=== PATIENT | female | born 1945 | race Caucasian/White ===

== ENCOUNTER 2020-10-28 09:23 | Day surgery (SDC) | payer MEDICARE ==
[2020-10-21 15:52] LABS: BASOPHILS % (AUTO) 0.7 % (0-1); EOSINOPHILS % (AUTO) 0.6 % (0-6); LYMPHOCYTES # (AUTO) 2.2 X10'3 (1.1-4.8); LYMPHOCYTES % (AUTO) 38.1 % (21-51); MEAN CORPUSCULAR HEMOGLOBIN 31.1 PG (27.0-31.0); MEAN CORPUSCULAR HGB CONC 33.6 g/dL (33.0-36.5); MEAN CORPUSCULAR VOLUME 92.6 FL (78-98); MEAN PLATELET VOLUME 7.6 FL (7.4-10.4); MONOCYTES # (AUTO) 0.5 X10'3 (0-0.9); MONOCYTES % (AUTO) 9.2 % (2-12); NEUTROPHILS # (AUTO) 2.9 X10'3 (1.8-7.7); NEUTROPHILS % (AUTO) 51.4 % (42-75); PRE OP HEMATOCRIT 41.3 % (35.0-45.0); PRE OP HEMOGLOBIN 13.9 g/dL (12.0-16.0); PRE OP PLATELET COUNT 194 X10'3 (140-440); RED BLOOD COUNT 4.46 X10'6 (4.20-5.60); RED CELL DISTRIBUTION WIDTH 13.5 % (11.5-14.5)
[2020-10-21 16:12] LABS: ALBUMIN 3.8 G/DL (3.4-5.0); ALKALINE PHOSPHATASE 58 IU/L (46-116); BLOOD UREA NITROGEN 18 MG/DL (7-18); BUN/CREATININE RATIO 16.7 (6.6-38.0); CALCIUM 9.7 MG/DL (8.5-10.1); CHLORIDE 105 MMOL/L (99-107); CREATININE 1.08 MG/DL (0.40-0.90); PRE OP ALT 25 U/L (30-65); PRE OP ANION GAP 6 (8-16); PRE OP AST 9 U/L (10-37); PRE OP BILIRUB, TOTAL 0.5 MG/DL (0.0-1.0); PRE OP POTASSIUM 3.8 MMOL/L (3.4-5.1); PRE OP SODIUM 143 MMOL/L (135-145); TOTAL CARBON DIOXIDE 32.5 MMOL/L (24-32); TOTAL PROTEIN 7.6 G/DL (6.4-8.2); eGFR 49 ML/MIN
[2020-10-21 16:13] LABS: PRE OP GLUCOSE 103 MG/DL (70-104)
[~2020-10-28] VITALS: Ht 162.6 cm; Wt 63.5 kg
[2020-10-28] VITALS (11 sets, daily range): BP systolic 107–122; BP diastolic 60–72
[~2020-10-28 09:23] MED LIST: BUPIVAcaine/PF 2.5 mg/ml (0.25%) 30ml vial ONE; ESTR1PAT95 TP; LIDOcaine 1% 30ml preserv. free vial ONE; PROG200C11 PO; ceFAZolin 2gm in dextrose, iso 50 ML IV ONE; famotidine 20mg tablet PO ONE; ringers solution, lacted 1,000 ML IV SCH
[2020-10-28] MEDS ORDERED: sevoflurane 250ml liquid IH ONE (12:03)
[2020-10-28] MEDS ORDERED: neostigmine methylsulfate 1 MG/ML 10ml vial ONE (12:03)
[2020-10-28] MEDS ORDERED: glycopyrrolate 0.2mg/ml inj ONE (12:03)
[2020-10-28] MEDS ORDERED: midazolam 2 mg/2 ml injection ONE (12:12)
[2020-10-28] MEDS ORDERED: fentaNYL/PF 50MCG/1 ML 2ML syringe ONE (12:12)
[2020-10-28] MEDS ORDERED: LIDOcaine 2% (20mg/ml) 5ml vial ONE (12:17)
[2020-10-28] MEDS ORDERED: propofol inj 20 ML IV ONE (12:17)
[2020-10-28] MEDS ORDERED: rocuronium 10mg/ml inj IV ONE (12:18)
[2020-10-28] MEDS ORDERED: ondansetron/PF 4mg/2ml inj ONE (12:19)
[2020-10-28] MEDS ORDERED: dexamethasone sod phosphate 4mg/ml inj. ONE (12:20)
[2020-10-28] MEDS ORDERED: ringers solution, lacted 1,000 ML IV SCH (12:40)
[2020-10-28] MEDS ORDERED: fentaNYL/PF 50MCG/1 ML 2ML syringe IV PRN ×2 (12:40)
[2020-10-28] MEDS ORDERED: hydrALAZINE 20mg/ml inj. IV PRN (12:40)
[2020-10-28] MEDS ORDERED: ondansetron/PF 4mg/2ml inj IV PRN (12:40)
[2020-10-28] MEDS ORDERED: labetalol 20mg/4ml (5mg/ml) syringe IV PRN (12:40)
[2020-10-28] MEDS ORDERED: morphine 4 MG/ML inj SYRINge IV PRN (12:40)
--- NOTE | 2020-10-28 13:37 | NUR ---
Received from OR via [facility], accompanied by Anesthesiologist AP and report given by Anesthesiolgist. NO CO PAIN, VSS, IV PATENT. 0 RESP DISTRESS. ABD BANDAIDS CDI.
[2020-10-28] MEDS ORDERED: oxyCODONE/APAP 5-325mg tablet PO PRN (13:45)
[2020-10-28] MEDS: morphine 2 MG/ML inj. syringe IV PRN ×2 (13:50→14:08)
[2020-10-28] MEDS ORDERED: acetaminophen 1,000mg/100ml IV 100 ML IV ONE (13:55)
--- NOTE | 2020-10-28 14:07 | NUR ---
STARTED TO GET PAINFUL. MED WITH MORPHINE 2 MG. PAIN IS IN ABD.
--- NOTE | 2020-10-28 14:25 | NUR ---
MED WITH TYLENOL IV FOR PAIN. PT IS FEELING BETTER BUT STILL HAS PAIN IN ABD. A 5. sHE DOESN'T WANT ANYMORE NARCOTICS BUT WAS OK WITH THE TYLENOL.
--- NOTE | 2020-10-28 15:07 | NUR ---
DC TO HOME. INSTRUCTIONS GONE OVER WITH DAUGHTER OVER PHONE, AND AGAIN AT THE CAR. PT DC TO HOME WITHOUT INCIDENT. ALL QUESTIONS ANSWERED STATE UNDERSTAND. PAIN VERY TOLERABLE.
== END 2020-10-28 15:07 | disposition home or self-care (01) ==
LOC: PAS 09:23
PROVIDERS: ATTEND Surgery
DX: K76.89 Other specified diseases of liver (principal); Z20.828 Contact with and (suspected) exposure to other viral communicable diseases; N18.30 Chronic kidney disease, stage 3 unspecified; Z90.710 Acquired absence of both cervix and uterus; Z79.899 Other long term (current) drug therapy; Z87.891 Personal history of nicotine dependence; Z72.89 Other problems related to lifestyle
CPT/HCPCS: 36415; 47379; 80053; 82948; 85025; 87635; 93005; J0131; J1100; J2001; J2250; J2270; J2405; J2704; J3010; J3490; J7120; S2900; A4215; A4618; A7000; J2710